=== PATIENT | female | born 1950 | race Caucasian/White ===

== ENCOUNTER 2016-06-22 09:22 | Emergency (ER) | payer MEDICARE ==
[~2016-06-22] VITALS: Ht 165.1 cm; Wt 80.0 kg
[~2016-06-22 09:22] MED LIST: ALBU0.63 NEB; ALBU8.5H5 INH; ASPI-496 PO; BUDE10.2 INH; FAMO-79 PO; FLUT1DIS3 INH; HYDR-3240 PO; HYDR-3307 PO; HYDR12.58 PO; LISI-466 PO; LISI1TAB3 PO
[2016-06-22] MEDS ORDERED: ONDANSETRON 2MG/ML, 2ML IVPush ONE (10:00)
[2016-06-22] MEDS ORDERED: SODIUM CHLORIDE 0.9% 1,000ML IVBOLUS ONE (10:00)
[2016-06-22] MEDS ORDERED: SODIUM CHLORIDE FLUSH 10ML SYR IVF ONE (10:00)
[2016-06-22] MEDS ORDERED: MORPHINE SULFATE 4 MG/ML, 1ML ONE ×2 (10:13→10:56)
[2016-06-22] MEDS ORDERED: ONDANSETRON 2MG/ML, 2ML ONE (10:13)
[2016-06-22] MEDS: MORPHINE SULFATE 4 MG/ML, 1ML IVPush PRN ×2 (10:18→10:58)
[2016-06-22 10:31] LABS: BLOOD UREA NITROGEN 12 mg/dL (7-18)
[2016-06-22 10:35] LABS: ASPARTATE AMINO TRANSFERASE 28 U/L (15-37)
[2016-06-22 12:14] VITALS: BP 139/64
== END 2016-06-22 12:16 | disposition home or self-care (01) ==
LOC: ED 10:30
DX: R10.12 Left upper quadrant pain (principal); R10.32 Left lower quadrant pain; R11.2 Nausea with vomiting, unspecified; R19.7 Diarrhea, unspecified; R63.0 Anorexia; J45.909 Unspecified asthma, uncomplicated; K21.9 Gastro-esophageal reflux disease without esophagitis; J44.9 Chronic obstructive pulmonary disease, unspecified; E11.9 Type 2 diabetes mellitus without complications; I10 Essential (primary) hypertension; Z98.890 Other specified postprocedural states
CPT/HCPCS: 36415; 74176; 80053; 81003; 83690; 85025; 93005; 96361; 96374; 96375; 96376; 99285; J2405; J7030

== ENCOUNTER 2016-06-27 15:47 | Emergency (ER) | payer MEDICARE ==
[~2016-06-27] VITALS: Ht 165.1 cm; Wt 78.9 kg
[2016-06-27] MEDS ORDERED: SODIUM CHLORIDE 0.9% 1,000 ML IV ONE (16:28)
[2016-06-27] MEDS ORDERED: ONDANSETRON 2MG/ML, 2ML IVPush ONE (16:30)
[2016-06-27] MEDS ORDERED: SODIUM CHLORIDE 0.9% 1,000ML IVBOLUS ONE (16:30)
[2016-06-27] MEDS ORDERED: FAMOTIDINE 20 MG/2 ML IVP ONE (16:30)
[2016-06-27] MEDS ORDERED: SODIUM CHLORIDE FLUSH 10ML SYR IVF ONE (16:30)
[2016-06-27] MEDS ORDERED: ONDANSETRON 2MG/ML, 2ML ONE (16:45)
[2016-06-27] MEDS ORDERED: FAMOTIDINE 20 MG/2 ML ONE (16:45)
[2016-06-27] MEDS ORDERED: MORPHINE SULFATE 4 MG/ML, 1ML ONE ×2 (16:45→17:46)
[2016-06-27] MEDS: MORPHINE SULFATE 4 MG/ML, 1ML IVPush PRN ×2 (16:50→17:52)
[2016-06-27 16:56] LABS: PATH.CAST-FLAG NOT PRESENT; SPERM-FLAG NOT PRESENT; SRC-FLAG NOT PRESENT; XTAL-FLAG NOT PRESENT; YLC-FLAG NOT PRESENT
[2016-06-27 16:57] LABS: ASPARTATE AMINO TRANSFERASE 33 U/L (15-37); BLOOD UREA NITROGEN 15 mg/dL (7-18)
[2016-06-27 17:54] VITALS: BP 119/75
[2016-06-27] MEDS ORDERED: FAMO-79 PO (17:56)
== END 2016-06-27 18:22 | disposition home or self-care (01) ==
LOC: ED 18:21
DX: N30.00 Acute cystitis without hematuria (principal); K29.00 Acute gastritis without bleeding; R10.12 Left upper quadrant pain; I10 Essential (primary) hypertension; J44.9 Chronic obstructive pulmonary disease, unspecified; Z90.49 Acquired absence of other specified parts of digestive tract; Z88.8 Allergy status to other drugs, medicaments and biological substances
CPT/HCPCS: 36415; 74022; 80053; 81001; 83605; 83690; 85025; 87086; 87147; 93005; 96361; 96374; 96375; 96376; 99285; J2405; J7030; S0028

== ENCOUNTER 2017-02-20 13:52 | Emergency (ER) | payer MEDICARE ==
[~2017-02-20] VITALS: Ht 165.1 cm; Wt 81.3 kg
[2017-02-20] MEDS ORDERED: SODIUM CHLORIDE 0.9% 1,000 ML IV ONE (14:12)
[2017-02-20] MEDS ORDERED: FAMOTIDINE 20 MG/2 ML ONE (14:20)
[2017-02-20] MEDS ORDERED: ONDANSETRON 2MG/ML, 2ML ONE (14:20)
[2017-02-20] MEDS ORDERED: SODIUM CHLORIDE 0.9% 1,000ML IVBOLUS ONE (14:30)
[2017-02-20] MEDS ORDERED: ONDANSETRON 2MG/ML, 2ML IVPush ONE (14:30)
[2017-02-20] MEDS: FAMOTIDINE 20 MG/2 ML IVP ONE ×2 (14:31→14:33)
[2017-02-20 14:42] LABS: HEMATOCRIT 43.9 % (34.6-47.8); HEMOGLOBIN 14.9 g/dL (11.7-16.4); WHITE BLOOD COUNT 5.8 x10^3/uL (3.4-10)
[2017-02-20] MEDS ORDERED: MORPHINE SULFATE 4 MG/ML, 1ML ONE (14:45)
[2017-02-20 14:55] LABS: ASPARTATE AMINO TRANSFERASE 30 U/L (15-37); BLOOD UREA NITROGEN 14 mg/dL (7-18)
[2017-02-20] MEDS ORDERED: MORPHINE SULFATE 4 MG/ML, 1ML IVPush PRN (15:00)
[2017-02-20] MEDS ORDERED: METOCLOPRAMIDE 5 MG/ML, 2ML ONE (15:40)
[2017-02-20 16:00] VITALS: BP 140/68
[2017-02-20] MEDS ORDERED: METOCLOPRAMIDE 5 MG/ML, 2ML IVPush ONE (16:00)
== END 2017-02-20 16:03 | disposition home or self-care (01) ==
LOC: ED 15:57
DX: K52.9 Noninfective gastroenteritis and colitis, unspecified (principal); J44.9 Chronic obstructive pulmonary disease, unspecified; I10 Essential (primary) hypertension; E11.9 Type 2 diabetes mellitus without complications; K21.9 Gastro-esophageal reflux disease without esophagitis
CPT/HCPCS: 36415; 74022; 80053; 81003; 83690; 85025; 96361; 96374; 96375; 99285; J2405; J2765; J7030; S0028

== ENCOUNTER 2017-03-06 12:57 | Emergency (ER) | payer MEDICARE ==
[~2017-03-06] VITALS: Ht 165.1 cm; Wt 81.6 kg
[2017-03-06] MEDS ORDERED: SODIUM CHLORIDE FLUSH 10ML SYR IVF ONE (13:30)
[2017-03-06] MEDS ORDERED: DIAZEPAM 5 MG/ML, 2ML IVPush ONE (13:30)
[2017-03-06 13:37] LABS: BASOPHILS # (AUTO) 0.01 x10^3/uL (0-0.1); BASOPHILS % (AUTO) 0 % (0-1); EOSINOPHILS # (AUTO) 0.05 x10^3/uL (0-0.4); EOSINOPHILS % (AUTO) 1 % (1-7); LYMPHOCYTES # (AUTO) 1.85 x10^3/uL (1-3.4); LYMPHOCYTES % (AUTO) 34 % (22-44); MD NO; MEAN CORPUSCULAR HEMOGLOBIN 30.3 pg (27.0-34.8); MEAN CORPUSCULAR HGB CONC 34.1 g/dL (32.4-35.8); MEAN CORPUSCULAR VOLUME 88.7 fL (80-100); MEAN PLATELET VOLUME 7.4 fL (7.4-10.4); MONOCYTES # (AUTO) 0.19 x10^3/uL (0.2-0.8); MONOCYTES % (AUTO) 3 % (2-9); NEUTROPHILS # (AUTO) 3.42 x10^3/uL (1.8-6.8); NEUTROPHILS % (AUTO) 62 % (42-75); PLATELET COUNT 191 x10^3/uL (130-400); RED BLOOD COUNT 4.84 x10^6/uL (3.82-5.3); RED CELL DISTRIBUTION WIDTH 12.8 % (9.6-15.2)
[2017-03-06] MEDS ORDERED: ONDANSETRON 2MG/ML, 2ML ONE (13:47)
[2017-03-06 13:49] LABS: ALBUMIN 3.6 g/dL (3.4-5.0); ANION GAP 9 mmol/L (5-15); CALCIUM 8.7 mg/dL (8.5-10.1); CHLORIDE 104 mmol/L (98-107); CREATININE 0.83 mg/dL (0.55-1.02)
[2017-03-06] MEDS ORDERED: ONDANSETRON 2MG/ML, 2ML IVPush ONE (14:00)
[2017-03-06] MEDS ORDERED: HYDROcodone/APAP 5/325 TABLET ONE (15:51)
[2017-03-06] MEDS ORDERED: HYDROcodone/APAP 5/325 TABLET PO ONE (16:00)
[2017-03-06 16:48] VITALS: BP 137/74
== END 2017-03-06 16:50 | disposition home or self-care (01) ==
LOC: ED 14:03
DX: S16.1XXA Strain of muscle, fascia and tendon at neck level, initial encounter (principal); S09.90XA Unspecified injury of head, initial encounter; W19.XXXA Unspecified fall, initial encounter; Y93.89 Activity, other specified; Y92.89 Other specified places as the place of occurrence of the external cause; Y99.8 Other external cause status; G89.29 Other chronic pain; E11.9 Type 2 diabetes mellitus without complications; I10 Essential (primary) hypertension; J44.9 Chronic obstructive pulmonary disease, unspecified; K21.9 Gastro-esophageal reflux disease without esophagitis
CPT/HCPCS: 36415; 70450; 72125; 80048; 82040; 85025; 93005; 96374; 96375; 99285; J2405; J3360

== ENCOUNTER → 2017-05-17 | Outpatient (CLI) | payer MEDICARE | END | disposition home or self-care (01) | LOC: CFH 14:13 | PROVIDERS: ATTEND Neurological Surgery | DX: M51.37 Other intervertebral disc degeneration, lumbosacral region (principal); M48.02 Spinal stenosis, cervical region; M50.323 Other cervical disc degeneration at C6-C7 level; M25.78 Osteophyte, vertebrae | CPT/HCPCS: 72050; 72110; 72141 ==

== ENCOUNTER → 2017-06-08 | Outpatient (CLI) | payer MEDICARE | LOC: CFH 14:56 | PROVIDERS: ATTEND Neurological Surgery | DX: Z02.9 Encounter for administrative examinations, unspecified (principal) ==

== ENCOUNTER → 2017-06-16 | Outpatient (CLI) | payer MEDICARE | LOC: CFH 12:40 | PROVIDERS: ATTEND Neurological Surgery | DX: M48.061 Spinal stenosis, lumbar region without neurogenic claudication (principal); M48.07 Spinal stenosis, lumbosacral region; M48.02 Spinal stenosis, cervical region | CPT/HCPCS: 72148 ==

== ENCOUNTER 2017-09-15 07:43 | Emergency (ER) | payer MEDICARE ==
[~2017-09-15] VITALS: Ht 165.1 cm; Wt 80.0 kg
[2017-09-15 07:55] VITALS: BP 170/90
[2017-09-15] MEDS ORDERED: MORPHINE SULFATE 4 MG/ML, 1ML IVPush PRN (09:00)
[2017-09-15] MEDS ORDERED: SODIUM CHLORIDE FLUSH 10ML SYR IVF ONE (09:00)
[2017-09-15] MEDS ORDERED: ONDANSETRON 2MG/ML, 2ML IVPush ONE (09:00)
[2017-09-15] MEDS ORDERED: ONDANSETRON 2MG/ML, 2ML ONE (09:07)
[2017-09-15] MEDS ORDERED: MORPHINE SULFATE 4 MG/ML, 1ML ONE (09:07)
[2017-09-15 09:20] LABS: BASOPHILS # (AUTO) 0.02 x10^3/uL (0-0.1); BASOPHILS % (AUTO) 0 % (0-1); EOSINOPHILS # (AUTO) 0.05 x10^3/uL (0-0.4); EOSINOPHILS % (AUTO) 1 % (1-7); LYMPHOCYTES # (AUTO) 1.22 x10^3/uL (1-3.4); LYMPHOCYTES % (AUTO) 23 % (22-44); MD NO; MEAN CORPUSCULAR HEMOGLOBIN 30.6 pg (27.0-34.8); MEAN CORPUSCULAR HGB CONC 34.4 g/dL (32.4-35.8); MEAN CORPUSCULAR VOLUME 89.1 fL (80-100); MEAN PLATELET VOLUME 7.2 fL (7.4-10.4); MONOCYTES # (AUTO) 0.16 x10^3/uL (0.2-0.8); MONOCYTES % (AUTO) 3 % (2-9); NEUTROPHILS # (AUTO) 3.79 x10^3/uL (1.8-6.8); NEUTROPHILS % (AUTO) 72 % (42-75); PLATELET COUNT 183 x10^3/uL (130-400); RED BLOOD COUNT 4.87 x10^6/uL (3.82-5.3); RED CELL DISTRIBUTION WIDTH 12.8 % (9.6-15.2)
[2017-09-15 09:28] LABS: ALANINE AMINOTRANSFERASE 44 U/L (12-78); ALBUMIN 3.9 g/dL (3.4-5.0); ANION GAP 7 mmol/L (5-15); CALCIUM 8.9 mg/dL (8.5-10.1); CHLORIDE 103 mmol/L (98-107); CREATININE 0.87 mg/dL (0.55-1.02)
[2017-09-15 09:31] LABS: ALKALINE PHOSPHATASE 88 U/L (45-117); BILIRUBIN,TOTAL 0.6 mg/dL (0.2-1.0); TOTAL PROTEIN 7.8 g/dL (6.4-8.2)
[2017-09-21] MEDS ORDERED: LIDOCAINE-MPF 2% ,5ML ONE (10:32)
== END 2017-09-15 10:55 | disposition home or self-care (01) ==
LOC: ED 10:47
DX: K52.29 Other allergic and dietetic gastroenteritis and colitis (principal); I10 Essential (primary) hypertension; E11.9 Type 2 diabetes mellitus without complications; E78.5 Hyperlipidemia, unspecified; K21.9 Gastro-esophageal reflux disease without esophagitis; J43.9 Emphysema, unspecified; G89.29 Other chronic pain
CPT/HCPCS: 36415; 80053; 83690; 85025; 96374; 96375; 99284; J2405

== ENCOUNTER 2017-11-21 10:38 | Emergency (ER) | payer MEDICARE ==
[~2017-11-21] VITALS: Ht 165.1 cm; Wt 79.0 kg
[2017-11-21 10:41] VITALS: BP 184/93
[2017-11-21] MEDS ORDERED: ONDANSETRON ODT 4 MG ONE (11:04)
[2017-11-21] MEDS ORDERED: OXYcodone/APAP 5/325MG TABLET ONE (11:26)
[2017-11-21] MEDS ORDERED: OXYcodone/APAP 5/325MG TABLET PO ONE (11:30)
[2017-11-21] MEDS ORDERED: ONDANSETRON ODT 4 MG PO ONE (11:30)
== END 2017-11-21 12:12 | disposition home or self-care (01) ==
LOC: ED 11:11
DX: M25.551 Pain in right hip (principal); E78.5 Hyperlipidemia, unspecified; K21.9 Gastro-esophageal reflux disease without esophagitis; J44.9 Chronic obstructive pulmonary disease, unspecified; I10 Essential (primary) hypertension; E11.9 Type 2 diabetes mellitus without complications; W18.30XA Fall on same level, unspecified, initial encounter; Y93.89 Activity, other specified; Y99.8 Other external cause status; Y92.009 Unspecified place in unspecified non-institutional (private) residence as the place of occurrence of the external cause
CPT/HCPCS: 73700; 99284; Q0162

== ENCOUNTER 2017-12-08 18:54 | Emergency (ER) | payer MEDICARE ==
[~2017-12-08] VITALS: Ht 165.1 cm; Wt 76.5 kg
[2017-12-08 19:31] LABS: BASOPHILS # (AUTO) 0.02 x10^3/uL (0-0.1); BASOPHILS % (AUTO) 0 % (0-1); EOSINOPHILS # (AUTO) 0.03 x10^3/uL (0-0.4); EOSINOPHILS % (AUTO) 1 % (1-7); LYMPHOCYTES # (AUTO) 2.43 x10^3/uL (1-3.4); LYMPHOCYTES % (AUTO) 35 % (22-44); MD NO; MEAN CORPUSCULAR HGB CONC 34.1 g/dL (32.4-35.8); MEAN CORPUSCULAR VOLUME 87.9 fL (80-100); MEAN PLATELET VOLUME 7.2 fL (7.4-10.4); MONOCYTES # (AUTO) 0.27 x10^3/uL (0.2-0.8); MONOCYTES % (AUTO) 4 % (2-9); NEUTROPHILS # (AUTO) 4.15 x10^3/uL (1.8-6.8); NEUTROPHILS % (AUTO) 60 % (42-75); PLATELET COUNT 212 x10^3/uL (130-400); RED BLOOD COUNT 5.12 x10^6/uL (3.82-5.3); RED CELL DISTRIBUTION WIDTH 13.1 % (9.6-15.2)
[2017-12-08 19:42] LABS: ALANINE AMINOTRANSFERASE 42 U/L (12-78); ALBUMIN 3.8 g/dL (3.4-5.0); ANION GAP 9 mmol/L (5-15); CALCIUM 9.2 mg/dL (8.5-10.1); CHLORIDE 103 mmol/L (98-107); CREATININE 0.87 mg/dL (0.55-1.02)
[2017-12-08 19:44] LABS: ALKALINE PHOSPHATASE 84 U/L (45-117); BILIRUBIN,TOTAL 0.5 mg/dL (0.2-1.0); TOTAL PROTEIN 7.8 g/dL (6.4-8.2)
[2017-12-08] MEDS ORDERED: HYDR-3240 PO (20:04)
[2017-12-08] MEDS ORDERED: ONDANSETRON ODT 4 MG ONE (20:17)
[2017-12-08] MEDS ORDERED: HYDROcodone/APAP 5/325 TABLET ONE (20:26)
[2017-12-08] MEDS ORDERED: ONDANSETRON ODT 4 MG PO ONE (20:30)
[2017-12-08 20:32] LABS: MICROSCOPIC NOT IND
[2017-12-08 20:33] LABS: CULTURE INDICATED? NO
[2017-12-08] MEDS ORDERED: HYDROcodone/APAP 5/325 TABLET PO ONE (21:00)
[2017-12-08 21:24] VITALS: BP 108/50
== END 2017-12-08 21:26 | disposition home or self-care (01) ==
LOC: ED 21:18
DX: S23.3XXA Sprain of ligaments of thoracic spine, initial encounter (principal); J44.9 Chronic obstructive pulmonary disease, unspecified; K21.9 Gastro-esophageal reflux disease without esophagitis; M54.9 Dorsalgia, unspecified; G89.29 Other chronic pain; I10 Essential (primary) hypertension; E11.9 Type 2 diabetes mellitus without complications; E78.5 Hyperlipidemia, unspecified; Z90.49 Acquired absence of other specified parts of digestive tract; X58.XXXA Exposure to other specified factors, initial encounter; Y93.89 Activity, other specified; Y99.8 Other external cause status; Y92.89 Other specified places as the place of occurrence of the external cause
CPT/HCPCS: 36415; 74176; 80053; 81003; 83690; 85025; 99285; Q0162

== ENCOUNTER 2018-01-22 08:32 | Emergency (ER) | payer MEDICARE ==
[~2018-01-22] VITALS: Ht 165.1 cm; Wt 77.7 kg
[2018-01-22] MEDS ORDERED: ONDANSETRON 2MG/ML, 2ML ONE (08:56)
[2018-01-22] MEDS ORDERED: MORPHINE SULFATE 4 MG/ML, 1ML ONE (08:57)
[2018-01-22] MEDS ORDERED: ONDANSETRON 2MG/ML, 2ML IVPush ONE (09:00)
[2018-01-22] MEDS ORDERED: SODIUM CHLORIDE FLUSH 10ML SYR IVF ONE (09:00)
[2018-01-22] MEDS ORDERED: MORPHINE SULFATE 4 MG/ML, 1ML IVPush PRN (09:00)
[2018-01-22 09:09] LABS: MICROSCOPIC AUTO
[2018-01-22 09:14] LABS: CULTURE INDICATED? YES
[2018-01-22 09:36] LABS: BASOPHILS # (AUTO) 0.02 x10^3/uL (0-0.1); BASOPHILS % (AUTO) 0 % (0-1); EOSINOPHILS # (AUTO) 0.02 x10^3/uL (0-0.4); EOSINOPHILS % (AUTO) 0 % (1-7); LYMPHOCYTES # (AUTO) 1.17 x10^3/uL (1-3.4); LYMPHOCYTES % (AUTO) 27 % (22-44); MD NO; MEAN CORPUSCULAR HEMOGLOBIN 30.2 pg (27.0-34.8); MEAN CORPUSCULAR HGB CONC 34.1 g/dL (32.4-35.8); MEAN CORPUSCULAR VOLUME 88.5 fL (80-100); MEAN PLATELET VOLUME 7.3 fL (7.4-10.4); MONOCYTES # (AUTO) 0.15 x10^3/uL (0.2-0.8); MONOCYTES % (AUTO) 3 % (2-9); NEUTROPHILS # (AUTO) 3.04 x10^3/uL (1.8-6.8); NEUTROPHILS % (AUTO) 69 % (42-75); PLATELET COUNT 184 x10^3/uL (130-400); RED BLOOD COUNT 5.07 x10^6/uL (3.82-5.3); RED CELL DISTRIBUTION WIDTH 13.2 % (9.6-15.2)
[2018-01-22 09:44] LABS: ALANINE AMINOTRANSFERASE 46 U/L (12-78); ALBUMIN 3.9 g/dL (3.4-5.0); ANION GAP 7 mmol/L (5-15); CALCIUM 8.8 mg/dL (8.5-10.1); CHLORIDE 104 mmol/L (98-107)
[2018-01-22 09:47] LABS: ALKALINE PHOSPHATASE 86 U/L (45-117); BILIRUBIN,TOTAL 0.5 mg/dL (0.2-1.0); CREATININE 0.88 mg/dL (0.55-1.02); TOTAL PROTEIN 7.6 g/dL (6.4-8.2)
[2018-01-22 10:40] VITALS: BP 124/64
== END 2018-01-22 11:02 | disposition home or self-care (01) ==
LOC: ED 10:26
DX: R10.84 Generalized abdominal pain (principal); R11.2 Nausea with vomiting, unspecified; I10 Essential (primary) hypertension; K21.9 Gastro-esophageal reflux disease without esophagitis; J44.9 Chronic obstructive pulmonary disease, unspecified; Z91.013 Allergy to seafood; Z88.1 Allergy status to other antibiotic agents; Z79.82 Long term (current) use of aspirin; Z88.5 Allergy status to narcotic agent
CPT/HCPCS: 36415; 74021; 76700; 80053; 81001; 83690; 85025; 87086; 93005; 96374; 96375; 99284; J2405

== ENCOUNTER 2018-06-04 14:31 | Emergency (ER) | payer MEDICARE ==
[~2018-06-04] VITALS: Ht 165.1 cm; Wt 76.7 kg
[~2018-06-04 14:31] MED LIST changes: -HYDR12.58 PO; +HYDROCHLOROTH12.5 MG PO
[2018-06-04] MEDS ORDERED: ONDANSETRON ODT 4 MG PO ONE (15:00)
[2018-06-04] MEDS ORDERED: HYDROmorphone 2 MG/ML, 1ML IM ONE (15:00)
[2018-06-04] MEDS ORDERED: HYDROmorphone 1 MG/ML, 1ML VIAL ONE (15:08)
[2018-06-04] MEDS ORDERED: ONDANSETRON ODT 4 MG ONE (15:08)
[2018-06-04 15:18] LABS: BASOPHILS # (AUTO) 0.03 x10^3/uL (0-0.1); BASOPHILS % (AUTO) 1 % (0-1); EOSINOPHILS # (AUTO) 0.03 x10^3/uL (0-0.4); EOSINOPHILS % (AUTO) 1 % (1-7); LYMPHOCYTES % (AUTO) 35 % (22-44); MD NO; MEAN CORPUSCULAR HEMOGLOBIN 29.4 pg (27.0-34.8); MEAN CORPUSCULAR HGB CONC 33.3 g/dL (32.4-35.8); MEAN CORPUSCULAR VOLUME 88.3 fL (80-100); MEAN PLATELET VOLUME 7.1 fL (7.4-10.4); MONOCYTES # (AUTO) 0.25 x10^3/uL (0.2-0.8); MONOCYTES % (AUTO) 4 % (2-9); NEUTROPHILS # (AUTO) 3.57 x10^3/uL (1.8-6.8); NEUTROPHILS % (AUTO) 60 % (42-75); PLATELET COUNT 200 x10^3/uL (130-400); RED BLOOD COUNT 5.25 x10^6/uL (3.82-5.3); RED CELL DISTRIBUTION WIDTH 12.7 % (9.6-15.2)
[2018-06-04 15:23] LABS: MICROSCOPIC INDICATED
--- NOTE | 2018-06-04 15:23 | NUR ---
TASK RN: PT RESTING IN ROOM. PT HAS NO NEEDS AT THIS TIME. PT HAS CALL LIGHT IN REACH.
[2018-06-04 15:27] LABS: CULTURE INDICATED? NO
[2018-06-04 15:29] LABS: ALBUMIN 4.2 g/dL (3.4-5.0); ANION GAP 8 mmol/L (5-15); CHLORIDE 107 mmol/L (98-107); CREATININE 0.74 mg/dL (0.55-1.02)
--- NOTE | 2018-06-04 16:04 | NUR ---
PT RESTING IN BED, NADN. CALL PLACED OT CT TO F/U ON DELAY IN SCAN, TECH STATES APPROX 20 MINUTES
--- NOTE | 2018-06-04 16:33 | NUR ---
ALL RESULTS BACK AT THIS TIME, CHART UP FOR RECHECK
[2018-06-04 17:07] VITALS: BP 120/71
--- NOTE | 2018-06-04 17:40 | NUR ---
Patient/Caregiver given discharge instructions and they have confirmed that they understand the instructions. Patient ambulatory with steady gait. Pt left with all personal belongings.
== END 2018-06-04 17:43 | disposition home or self-care (01) ==
LOC: ED 17:02
DX: N30.00 Acute cystitis without hematuria (principal); I10 Essential (primary) hypertension; E11.9 Type 2 diabetes mellitus without complications; G89.29 Other chronic pain; J44.9 Chronic obstructive pulmonary disease, unspecified; K21.9 Gastro-esophageal reflux disease without esophagitis; E78.5 Hyperlipidemia, unspecified; Z90.49 Acquired absence of other specified parts of digestive tract; Z88.6 Allergy status to analgesic agent
CPT/HCPCS: 36415; 74176; 80048; 81001; 82040; 85025; 96372; 99284; J1170; Q0162

== ENCOUNTER 2018-08-14 16:11 | Emergency (ER) | payer MEDICARE ==
[~2018-08-14] VITALS: Ht 165.1 cm; Wt 79.2 kg
[2018-08-14 17:00] VITALS: BP 166/79
[2018-08-14] MEDS ORDERED: ONDANSETRON ODT 4 MG PO ONE ×2 (17:30)
--- NOTE | 2018-08-14 18:31 | NUR ---
NO ANSWER WHEN CALLED FOR REPEAT VITALS @ 1831.
--- NOTE | 2018-08-14 18:45 | NUR ---
pt not in lobby when called to room
--- NOTE | 2018-08-14 18:57 | NUR ---
NO ANSWER IN LOBBY
== END 2018-08-14 19:04 | disposition left against medical advice (07) ==
LOC: ED 18:58
DX: R10.9 Unspecified abdominal pain (principal); R11.2 Nausea with vomiting, unspecified; R42 Dizziness and giddiness; Z53.21 Procedure and treatment not carried out due to patient leaving prior to being seen by health care provider
CPT/HCPCS: 93005; 99283; Q0162